=== PATIENT | male | born 1965 | race Caucasian/White ===

== ENCOUNTER 2017-05-01 19:08 | Emergency (ER) | payer MEDICARE, OTHER ==
[~2017-05-01] VITALS: Ht 172.7 cm; Wt 99.8 kg
[2017-05-01] MEDS ORDERED: MEDROL4 M1 PO (19:28)
[2017-05-01] MEDS ORDERED: CYCLOBENZAPRINE10 MG PO (19:28)
== END 2017-05-01 19:37 | disposition home or self-care (01) ==
LOC: ED 19:08
DX: M54.42 Lumbago with sciatica, left side (principal); E11.9 Type 2 diabetes mellitus without complications; I10 Essential (primary) hypertension; Z85.05 Personal history of malignant neoplasm of liver; Z98.890 Other specified postprocedural states
CPT/HCPCS: 99283